=== PATIENT | female | born 1980 | race Two or more races ===

== ENCOUNTER 2021-05-14 06:16 | Emergency (ER) | payer SELFPAY ==
[~2021-05-14] VITALS: Ht 162.6 cm; Wt 72.6 kg
--- NOTE | 2021-05-14 06:28 | NUR ---
IRIS MANCUSO AT PT'S BEDSIDE
--- NOTE | 2021-05-14 06:28 | NUR ---
bibself c/o having syphilis, with pain in urination x 5 days. pt a/o, rr even unlaboered, no sob noted. vss.
--- NOTE | 2021-05-14 06:37 | NUR ---
PELVIC EXAM DONE BY IRIS MANCUSO WITH FEMALE RN [employer]
--- NOTE | 2021-05-14 06:42 | NUR ---
URINE COLLECTED AND SENT TO LAB
[2021-05-14 07:03] LABS: BILIRUBIN,URINE NEGATIVE (NEGATIVE); COLOR,URINE YELLOW (YELLOW); LEUKOCYTE ESTERASE ,URINE SMALL (NEGATIVE); NITRITE, URINE NEGATIVE (NEGATIVE); PROTEIN,URINE NEGATIVE (NEGATIVE); UGLUCOSE NEGATIVE (NEGATIVE); UROBILINOGEN,URINE 0.2 EU/dL (0.2)
--- NOTE | 2021-05-14 07:10 | NUR ---
[employer]IFT [employer] MANAGER AT PT'S BEDSIDE
[2021-05-14 07:28] LABS: BACTERIA,URINE Few /HPF (None Seen); RBC,URINE F /HPF (0-2); SQUAMOUS EPITHELIAL CELL,UR Few /HPF (None Seen)
[2021-05-14] MEDS ORDERED: DOXYCYCLINE HYCLATE (100 MG) 100 MG TABLET ONE (07:40)
[2021-05-14] MEDS ORDERED: PENICILLIN G BENZATHINE 2.4 MMU/4 ML ML IM ONE ×2 (07:40→08:00)
[2021-05-14] MEDS ORDERED: DOXY100C2 PO (07:43)
--- NOTE | 2021-05-14 07:49 | NUR ---
Patient discharged to home in stable condition. Written and verbal after care instructions given. Patient verbalizes understanding of instruction.
[2021-05-14 07:50] VITALS: BP 127/82
[2021-05-14] MEDS ORDERED: DOXYCYCLINE HYCLATE (100 MG) 100 MG TABLET PO ONE (08:00)
== END 2021-05-14 07:50 | disposition home or self-care (01) ==
LOC: ER 06:21
DX: Z20.2 Contact with and (suspected) exposure to infections with a predominantly sexual mode of transmission (principal); R82.81 Pyuria; Z60.2 Problems related to living alone
CPT/HCPCS: 81001; 84703; 87077; 87086; 87186; 87491; 87591; 96372; 99283; J0558